=== PATIENT | female | born 1940 | race Caucasian/White ===

== ENCOUNTER 2016-08-10 14:46 | Inpatient (IN) | payer OTHER ==
--- NOTE | ~2016-08-10 | DS ---
Discharge Summary [place] [id number] [facility] [place]. [address] NAME: AMBER RENE : 42 STATUS : DIS IN PAT#: [id number] AGE: 76 ADM/REG DATE : 08/10/16 MR#: [id number] REPORT SERV DATE: 08/19/16 DICTATED BY: SIMON STAHL DATE: 08/18/16 REPORT STATUS : Draft TRANSCRIBED BY: DAVID DATE: 08/18/16 ADMISSION DATE: 08/10/2016 DISCHARGE DATE: 08/18/2016 PRINCIPAL DIAGNOSIS: Syncope in the setting of severe hyperglycemia. SECONDARY DIAGNOSES: 1. Type 2 diabetes, uncontrolled. 2. Dementia. 3. Generalized weakness. 4. Abdominal pain. 5. Hypokalemia. 6. Orthostasis. 7. Lung nodule. HISTORY OF PRESENT ILLNESS: Please Dr. Vogel's dictation on 08/10/2016. HOSPITAL COURSE: Please see Dr. Fermin's dictation on 08/17/2016. Subsequent hospital course, the patient had already been approved to rehabilitation center and paperwork was completed and she was released in stable condition. Arrangements were made with Dr. Leeanna Srivastava in followup as an outpatient for the lung nodule which was concerning, but for which she was a poor candidate for biopsy or treatment. She was sent over to [facility] in satisfactory condition. She is eating well. DNR status was affirmed. Physical therapy, occupational therapy per facility. She will continue lactulose 30 mL b.i.d., Levemir 45 units b.i.d., NovoLog 14 with meals, MiraLAX, Celexa, Actigall, Prilosec, Coumadin with biweekly PT, INRs. She will follow up Dr. Hernandez following [facility] release. Greater than 30 minutes were spent in care of this patient on discharge planning on discharge day. DICTATED BY: Marcell Gomez/DAVID Simon Stahl M.D. / [id number] CC: Simon Burke SamMarcell Kerr M.D. Pamela Sud, M.D. Discharge Summary [place] [address] [place] [address] NAME: AMBER RENE : 42 STATUS : DIS IN PAT#: [id number] AGE: 76 ADM/REG DATE : 08/10/16 MR#: [id number] REPORT SERV DATE: 08/19/16 DICTATED BY: SIMON STAHL DATE: 08/18/16 REPORT STATUS : Draft TRANSCRIBED BY: DAVID DATE: 08/18/16 [facility] [place]
--- NOTE | ~2016-08-10 | IDS ---
Interim Discharge Summary [facility] [address] [place]. [address] NAME: AMBER RENE : 42 STATUS : ADM IN [facility]#: [id number] AGE: 76 ADM/REG DATE : 08/10/16 MR#: [id number] REPORT SERV DATE: 08/17/16 DICTATED BY: AURELIA FERMIN DATE: 08/17/16 REPORT STATUS : Draft TRANSCRIBED BY: DAVID DATE: 08/17/16 ADMISSION DATE: 08/10/2016 DISCHARGE DATE: PROBLEM LIST: 1. Unresponsive spell. 2. Uncontrolled diabetes mellitus type 2 with A1c 12%. 3. Severe constipation. 4. Senile dementia. 5. History of lung cancer, 2005, now with a right lower lobe nodule that is worrisome. 6. History of previous PCI. 7. Report of pulmonary embolism in 2016 at [facility]. 8. Hypertension. 9. Chronic back pain. 10.Body mass index 34.3. HISTORY: This patient was brought to the emergency room. There was no family with her at the time when our admitting partner saw her. She complained of what is that she felt sick and that her sides were hot and pointing to the bilateral flanks. There was an indirect story that the paramedics were called because the patient either passed out or was unresponsive. Our admitting partner put the patient in the hospital. We have had difficulty contacting the family. I was able to reach a granddaughter, Faith, on 08/10/2016. She says that she was not at the house at that time, but that the patient reportedly was unconscious. She does not know any details about how long. She states that the patient's daughter Yoshi is there with her usually, and when she is not, there is a caregiver named Diandra. I was never able to reach this Diandra person who supposedly was there at that time the episode occurred. I did reach Yoshi on 08/12/2016. She states that her friend Diandra was with the patient when the patient became dazed and confused. Again, she could give very few details. I asked for Diandra's contact number. She gave me a phone number for Diandra, but I called it and all I got was a voice mail for someone named Sonya. Imaging included a chest x-ray, which was unremarkable. CT scan of the brain, which showed atrophy versus an unusual variant of hydrocephalus, known as extra-axial hydrocephalus, but the radiologist felt was probably not present. There was deep white matter changes consistent with old ischemic injury. CT scan of abdomen and pelvis because of her complaint of flank pain was ordered by me and done on 08/12/2016. It revealed pulmonary changes that could be either pulmonary vascular congestion or mild pulmonary fibrosis. There was an enlarging right lower lobe nodule, it was 1.4 x 1.4 cm, concerning for neoplasm, cardiomegaly with bilateral renal cyst and heavily calcified aorta. Echocardiogram, 08/12/2016, left ventricular ejection fraction 55%. Left atrium 4.3 cm. On physical exam, though the patient would complain of burning pain in her flanks one day, the next day, she will complain of pain and a completely different area of her abdomen and this pattern of change occurred frequently. On palpation, the patient never appeared to Interim Discharge Summary [address] [address] NAME: AMBER RENE : 42 STATUS : ADM IN PAT#: [id number] AGE: 76 ADM/REG DATE : 08/10/16 MR#: [id number] REPORT SERV DATE: 08/17/16 DICTATED BY: AURELIA FERMIN DATE: 08/17/16 REPORT STATUS : Draft TRANSCRIBED BY: DAVID DATE: 08/17/16 have any pain. She was eating very well, cleaning her plates up. She has had significant constipation. We have been working on that with MiraLAX, lactulose, milk of magnesia, Dulcolax, magnesium citrate, and now we are adding tap water enemas. The patient states that her bowels usually move on a daily basis. Diabetes mellitus is out of control. Her A1c was 12%. The patient's appetite is excellent. She asked me if she can have snacks like potato chips and barbecue, pork skins. I have talked with her about this and her diet. It is unclear how well her diet was being followed at home. We have adjusted her insulin upward. From talking to her daughter and her granddaughter, it sounds like the patient has dementia characteristics. Granddaughter stated that the patient talks out of her head ever since she had a stroke and she refers to an episode about seven months ago at another facility. The patient's daughter indicates that the patient can walk with a walker, but needs some assistance. Also needs help when she tries to shower. She can usually feed herself. She wears pull-ups because she has some incontinence, but she usually is able to tell them when she needs to go the bathroom. The daughter indicates that the patient has varying amounts of confusion, tends to repeat herself, talked about birds flying around the house when there was no evidence of that, at times she is slow mentally and very drowsy. She is on warfarin reportedly for a blood clot that she had in her lungs at [facility] in 01/2016. We have requested those records as well as records from her PCP. We have not received them yet. It is not clear why the patient would still be on it now other than possibly had not gotten in six months. They do not know of any prior blood clots. It is not clear also why she is on Actigall other than we have observed that her alkaline phosphatase levels are elevated currently around 117-118 and they have been elevated since 08/2013. Her total bilirubin levels have not been elevated and her ALT and AST levels are normal. Physical Therapy feels she needs inpatient rehab and then returning to home. The granddaughter and daughter told me that the patient was living with the daughter Yoshi that their landlord put him out on the street, it was unclear why, now they have another place to go live. I have tried to reach the daughter Yoshi multiple times, since one time I reached her on the phone on 08/12/2016. I have just repeatedly gotten her voice mail, most the time the voicemail is full. When it has not been full, I have left a message, but I have not been able to communicate with her because I wanted to make sure she knew about how her mom is doing and want to make sure she knew about that right lower lobe nodule, but I have not been able to get in touch with her. Case management has had similar challenges as well. RSG/MODL Interim Discharge Summary [place] [address] [place]. [address] NAME: AMBER RENE : 42 STATUS : ADM IN [facility]#: [id number] AGE: 76 ADM/REG DATE : 08/10/16 MR#: [id number] REPORT SERV DATE: 08/17/16 DICTATED BY: AURELIA FERMIN DATE: 08/17/16 REPORT STATUS : Draft TRANSCRIBED BY: DAVID DATE: 08/17/16 Aurelia Fermin M.D. / [id number] CC: Marcell Barrera M.D.
--- NOTE | ~2016-08-10 | HP ---
History And Physical [place] [id number] [facility] [place]. [address] NAME: AMBER RENE : 42 STATUS : ADM IN [facility]#: [id number] AGE: 76 ADM/REG DATE : 08/10/16 MR#: [id number] REPORT SERV DATE: 08/10/16 DICTATED BY: EVELIO LORD DATE: 08/10/16 REPORT STATUS : Draft TRANSCRIBED BY: MODSandra DATE: 08/10/16 DATE OF ADMISSION: 08/10/2016 CHIEF COMPLAINT: Passing out, possible syncope, and high blood sugars. HISTORY OF PRESENT ILLNESS: Obtained from the patient, who is a rather very poor historian and not lot of information available. The patient states only that she is sick and that "her sides are hot", pointing towards both flanks of the abdomen. The patient stated she had some loose stools, but no further information available such as any frequency or the quality of the stools. Presently, the patient actually is asking for some thing to eat as she has not been eating since last night. Denies any fever or chills. She stated that she had increased frequency and urgency, but no dysuria. No fever or chills reported. No coughing. No chest pain or palpitations. Apparently "almost passing out," investigation in the emergency room was showing orthostatic hypotension by increasing pulse and symptoms of "blacking out" as per patient and significantly uncontrolled blood sugars/hyperglycemia. Because of the above presentation and findings and because of the possible syncope episode at home, the patient apparently now is on warfarin. The patient was referred to the Hospitalist Service for further management and evaluation. Presently, the patient is comfortable in bed, asking for something to eat. She knows that she is in the hospital and she agreed to be admitted, but she cannot offer further information regarding her medical condition, medications, been following on her medical treatment. PAST MEDICAL HISTORY: Significant for prior COPD with a history of lung cancer, status post right lobectomy in the past, no longer smoking, on chronic home oxygen at home 2 L to 3 L of oxygen by nasal cannula, history of coronary artery disease with prior cardiac stenting, history of CHF with mild systolic dysfunction, last 2D echo in 08/2013 showed ejection fraction of 35%. The patient used to be seen in the past by Dr. John Garcia, Diagnostic Cardiology, uncertain if the patient has been followed with him since. History of hypertension, history of peripheral vascular disease, history of "fatty liver" and possible cirrhosis, history of hyperlipidemia, history of diabetes type 2, insulin dependent for many years; apparently poorly controlled, history of morbid obesity, history of osteoarthritis, osteoporosis, and degenerative disk disease with prior reported chronic lower back pain, history of GERD, history of depression and anxiety, history of cerebrovascular disease with prior CVA and TIAs, history of possible cognitive impairment, history of hearing loss on the right side. History of prior anemia, iron deficiency. PAST SURGICAL HISTORY: Significant for right lobectomy in 2004 for lung cancer, follow up with chemotherapy, history of cardiac stent placed in 2006, ear surgery in , partial hysterectomy in 1972, and cataract surgery, left and right, history of several EGDs and colonoscopies with history of a small bowel obstruction with lysis of adhesion as well as Meckel's diverticulum with laparoscopic mesh repair of an incisional hernia in 02/2013 at [facility], and history of . ALLERGIES: NO KNOWN DRUG ALLERGIES. FAMILY HISTORY: Significant for hypertension, diabetes, and coronary artery disease. History And Physical [address] [address] NAME: AMBER RENE : 42 STATUS : ADM IN [facility]#: [id number] AGE: 76 ADM/REG DATE : 08/10/16 MR#: [id number] REPORT SERV DATE: 08/10/16 DICTATED BY: EVELIO LORD DATE: 08/10/16 REPORT STATUS : Draft TRANSCRIBED BY: MODSandra DATE: 08/10/16 SOCIAL HISTORY: She is single. Lives with family. Retired. Quit smoking in 2004, no longer smoking. Denies alcohol abuse. Denies illicit recreational drug abuse. MEDICATIONS: Medications at home according to the list provided, the patient is supposed to take Celexa 20 mg p.o. daily, Plavix 75 mg p.o. daily, Lasix 20 mg p.o. q.a.m. and another 10 mg p.o. q. evening, Levemir 45 units subcutaneous daily and 35 units subcutaneous at bedtime, Combivent Respimat one inhalation q.i.d., losartan 25 mg p.o. daily, Prilosec 20 mg p.o. daily, potassium KCl 20 mEq p.o. b.i.d., Zocor 40 mg p.o. at bedtime, Actigall 300 mg p.o. b.i.d. with food, Coumadin one tablet p.o. daily, uncertain dose and scheduled, and uncertain if the patient has been taking all of the above medications as prescribed. REVIEW OF SYSTEMS: As per H and P, otherwise negative in all review of systems. Please note, the comprehensive review of system was obtained and pertinent positives were including in the H and P. Please note, the patient is a very poor historian and further information to be obtained and clarified with the patient's daughter seems to be the dinkey press operator at this moment. PHYSICAL EXAMINATION: GENERAL: Pleasant, in no particular distress at this moment. VITAL SIGNS: Upon arrival in the emergency room, blood pressure 119/56, pulse 72, respiratory rate 14, temperature 97, and oxygen saturation 98% on 3 L by nasal cannula, which is her baseline. Please note, the patient's orthostatic vital signs changes by increasing pulse and symptoms from 78 on laying flat to 99, heart rate attempts to stand becoming lightheaded as documented in the emergency room. HEENT: With bilateral cataracts. Extraocular movements intact. Throat, mild erythema. No exudate. Edentulous. No signs of tenderness. Atraumatic. NECK: Supple. No JVD. No bruits. No thyromegaly. No lymph nodes. LUNGS: Bilateral air entry with few bibasilar crackles. No wheezing. Good airway movement. HEART: Positive S1, S2. Regular rate and rhythm. Positive mitral regurgitation. Murmur at the apex. ABDOMEN: Positive bowel sounds. Soft and obese, with nonspecific left and right flank tenderness, but no masses. No localized tenderness. No CVA tenderness. No guarding. EXTREMITIES: With decreased range of motion and osteoarthritic changes. No clubbing, no cyanosis, +1 edema bilaterally up to mid calves, +1 pulses bilateral. No calf tenderness. NEUROLOGIC: Alert and oriented x2 to x3, easily reoriented with generalized weakness. Cranial nerves 2 though grossly intact. Motor strength 4-5/5, but symmetric bilateral. Deep tendon reflexes 2/2 symmetrical bilateral. BACK: With decreased range of motion. No focal localized tenderness. No CVA tenderness. SKIN: No bruises, no rashes, no lacerations. SIGNIFICANT LABORATORY DATA: Chest x-ray (personal reading) showed no acute infiltrate. EKG (personal reading) showed normal sinus rhythm, 67 beats per minute. No acute ST elevation. No old EKG available for comparison. Urinalysis was negative for signs of infection, glucose more than 500 and ketones 20. Sodium 137, potassium 3.6, chloride 99, bicarb 31, BUN 7, creatinine 0.81, glucose 391, calcium 9.4, and magnesium 1.7. Troponin I 0.04, which History And Physical [address] [address] NAME: AMBER RENE : 42 STATUS : ADM IN [facility]#: [id number] AGE: 76 ADM/REG DATE : 08/10/16 MR#: [id number] REPORT SERV DATE: 08/10/16 DICTATED BY: EVELIO LORD DATE: 08/10/16 REPORT STATUS : Draft TRANSCRIBED BY: DAVID DATE: 08/10/16 is negative. White cell count 4.7, hemoglobin 14.7, platelet count 216, and INR 1.1. ASSESSMENT AND PLAN AND PROBLEM LIST: The patient is a pleasant 76-year-old woman, admitted with likely syncope, falls, increasing confusion, significantly uncontrolled diabetes, and orthostatic hypotension. IMPRESSION: 1. Neurologic and psychiatric problem:. a. Syncope and falls. b. Confusion, question her baseline, possible altered mental status. c. Cerebrovascular disease, status post prior cerebrovascular accidents and transient ischemic attacks as previously documented. d. Depression and anxiety. For all the above, the patient has been admitted on the Hospitalist Service. We are going to continue with schedule neurologic checks. We are going to obtain a CT scan of the head/brain upon admission, as the patient supposedly is taking warfarin/blood thinner, and obviously cannot offer any significant reliable information. We are going to check a TSH, vitamin B12, and folate as correction would greatly improve her quality of life. Minimize sedation overall and continue to monitor clinically and provide supportive treatment. 1. Cardiovascular:. a. Orthostatic hypotension by elevated pulse. b. Coronary artery disease, status post prior cardiac stents. c. Congestive heart failure, 45%, in 08/2013. No more recent 2D echocardiogram available. d. Hypertension, uncontrolled; essential hypertension. e. Peripheral vascular disease by history. For all the above, we are going to continue the patient's Plavix. We are going to provide gentle IV hydration and continue orthostatic vital signs measurements and evaluation. Repeat CK and troponin I, and repeat 2D echocardiogram. Continue her ARB with Cozaar/losartan and use IV hydralazine p.r.n. for increased blood pressure. Consider Cardiology consultation. Continue her Lasix at this moment. 1. Endocrinologic problem:. a. Diabetes type 2, severely uncontrolled. Insulin-dependent with complications and with hyperglycemia. We are going to continue Levemir/long-acting insulin and continue sliding scale with NovoLog. Provide diabetic education. Check hemoglobin A1c. b. Hyperlipidemia, mixed type. Continue medications and check a lipid profile in the morning. Low cholesterol diet. c. Obesity with a body mass index more than 30. Encourage weight loss and moderate structured exercise. 2. Pulmonary:. a. Chronic obstructive pulmonary disease. b. Chronic home oxygen dependent, 2 L to 3 L of oxygen by nasal cannula. c. Status post right lobectomy for prior lung cancer with some degree of restrictive lung disease. History And Physical [address] [address] NAME: AMBER RENE : 42 STATUS : ADM IN [facility]#: [id number] AGE: 76 ADM/REG DATE : 08/10/16 MR#: [id number] REPORT SERV DATE: 08/10/16 DICTATED BY: EVELIO LORD DATE: 08/10/16 REPORT STATUS : Draft TRANSCRIBED BY: MODL DATE: 08/10/16 For all the above, we are going to continue the patient's home oxygen supplementation/chronic hypoxemic respiratory failure. We are going to continue bronchodilator therapy with DuoNebs. 1. Gastrointestinal problem. a. Gastroesophageal reflux disease without esophagitis. Continue PPI with Protonix 40 mg p.o. daily. b. History of fatty liver and cirrhosis. Check liver function profile at this moment. Continue to monitor clinically. c. Chronic anticoagulation, on Coumadin. Uncertain reason at this moment since the patient has not been taking it as recommended. We are going to try to obtain records from the patient's primary care provider. 2. Osteoarthritis, osteoporosis, deconditioning, and debilitation with a degenerative disk disease and chronic lower back pain. Provide adequate pain control. Encourage mobilization. Obtain physical therapy evaluation. 3. Do not resuscitation discussion. Confirmed with prior medical records, the patient was a do not resuscitate. We are going to reconfirm with the POLST form and confirm with the patient's family in the morning. 4. Prognosis: Moderately good for this admission rather poor in due to the patient's multiple medical problems and poor functional status and decline. RF/MODL Evelio Lord M.D. / [id number] CC: Marcell Dawson M.D.
--- NOTE | ~2016-08-10 | ECH ---
Echocardiogram [facility] [address] [place]. [address] NAME: AMBER RENE : 42 STATUS : ADM IN [facility]#: [id number] AGE: 76 ADM/REG DATE : 08/10/16 MR#: [id number] REPORT SERV DATE: 08/12/16 DICTATED BY: REYNA MCCARTHY JR. DATE: 08/12/16 REPORT STATUS : Draft TRANSCRIBED BY: DAVID DATE: 08/12/16 TECH: Serenity Rees is RDCS. ORDERING: Evelio Vogel M.D. INDICATIONS: Syncope, coronary artery disease. 2-D INTERPRETATION: M-mode and 2-dimensional echocardiography were performed. The left atrium was dilated at 4.3 cm compared to an aortic root diameter of 3.1 cm. The left ventricle is normal in size measuring 5 cm in end-diastole and 3.6 cm in end-systole. Overall, there appeared to be normal left ventricular systolic function without regional wall motion abnormalities with ejection fraction of 55%. The aortic valve was trileaflet. The mitral valve appeared to be mildly sclerotic with mild mitral annular calcification. The remaining cardiac valves appeared to be structurally normal. No obvious pericardial or pleural effusion could be seen. No intracardiac mass could be identified. DOPPLER/COLOR FLOW: Conventional and Doppler color flow imaging were performed. Mitral flow patterns were normal for patient's age. There was trace to mild mitral insufficiency. There was trace tricuspid insufficiency. Pulmonary hypertension was not noted. There was no aortic insufficiency. Nor aortic stenosis. CONCLUSION: NORMAL LEFT VENTRICULAR SYSTOLIC FUNCTION WITH DIASTOLIC FUNCTION APPROPRIATE FOR AGE. NO OBVIOUS EVIDENCE OF PULMONARY HYPERTENSION. DEFINITY CONTRAST IMAGING AGENT WAS UTILIZED TO ENHANCE ENDOCARDIAL BORDERS. /DAVID Reyna Mccarthy Jr., M.D. / [id number] CC: Benson Fermin M.D.
[2016-08-10 13:37] LABS: BASOPHILS 0.4 %; BASOPHILS ABSOLUTE 0.02 10/3/uL (0.0-0.16); EOSINOPHILS 1.3 %; EOSINOPHILS ABSOLUTE 0.06 10/3/uL (0.0-0.53); ER CBC TAT 0 Hrs 09 Mins; HEMATOCRIT 42.4 % (36.0-48.0); HEMOGLOBIN 14.7 g/dL (12.0-16.0); IMMATURE GRANULOCYTES 1.7 %; IMMATURE GRANULOCYTES ABSOLUTE 0.08 10/3/uL (0.0-0.11); LYMPHOCYTES 33.5 %; LYMPHOCYTES ABSOLUTE 1.57 10/3/uL (0.67-4.30); MANUAL DIFF NO %; MEAN CORPUS HGB CONC 34.7 g/dL (32.0-36.0); MEAN CORPUSCULAR VOLUME 89.5 fL (80-100); MEAN PLATELET VOLUME 9.6 fL (9.2-13.0); MONOCYTES 12.2 %; MONOCYTES ABSOLUTE 0.57 10/3/uL (0.21-1.20); NEUTROPHILS 50.9 %; NEUTROPHILS ABSOLUTE 2.38 10/3/uL (2.02-8.40); PLATELET COUNT 216 10/3/uL (150-400); RBC DISTRIBUTION WIDTH 13.8 % (12.0-16.0); RED CELL COUNT 4.74 10/6/uL (4.0-5.6); WHITE BLOOD CELLS 4.7 10/3/uL (4.5-10.5)
[2016-08-10 13:44] LABS: INTERNATIONAL NORMAL RATI 1.1 UNITS (-); PARTIAL THROMBO TIME 25.6 SEC (22.5-37.2); PROTIME (NOT ORD) 14.3 SEC (12.0-14.5)
[2016-08-10 13:47] LABS: BUN (BLOOD UREA NITROGEN) 7 MG/DL (6-23); CALCIUM, SERUM 9.4 MG/DL (8.5-10.4); CHEST PAIN PROFILE TAT 0 Hrs 20 Mins; CHLORIDE, SERUM 99 MMOL/L (96-112); CO2 (CARBON DIOXIDE) 31 MMOL/L (24-34); CREATININE 0.81 MG/DL (0.55-1.02); GFR AFRICAN AMERICAN 83 ML/MIN (>=60); GFR NON AFRICAN AMERICAN 72 ML/MIN (>=60); POTASSIUM, SERUM 3.6 MMOL/L (3.5-5.3); SODIUM, SERUM 137 MMOL/L (135-148); TROPONIN I 0.04 NG/ML (<0.05)
[2016-08-10 13:48] LABS: GLUCOSE, SERUM 391 MG/DL (60-99)
[2016-08-10 14:44] LABS: ASCORBIC ACID (UR NOT ORDER) NEG (NEG); BILIRUBIN, URINE NEGATIVE (NEG); ER URINALYSIS TAT 0 Hrs 09 Mins; KETONE, URINE 20 MG/DL (NEG); LEUKOCYTE ESTERASE(NOT OR NEG (NEG); NITRITE (URINE) NEG (NEG); WBC (NOT ORDERED) (RFLEX) < 1 (0-5)
[~2016-08-10 14:46] MED LIST: ACT300 PO; ALAVERT10 MG PO; ALBUTEROL NEBULIZER INH; ASA5GR PO; AVELOX400 PO; COMBIVENT RESPIM4 GM INH; COZ25 PO; CRESTOR10 PO; DOK100 MG PO; DSS PO; FLONASE NAS; FLOVENT110 INH; GLUCOPHAGE1000 MG PO; GLUCOPHXR PO; GLUCPH PO; HUMULIN R1 ML SC; IMDUR30 PO; INSNOV7030 SC; INSNOVR SC; KLOR-CON M1010 MEQ PO; KLOR-CON M2020 MEQ PO; KLOR-CON20 MEQ PO; L40 PO; LEVAQUIN750 MG PO; LORTAB 5 PO; METFORMIN HCL PO; METFORMIN PO; MIRALAXPKT PO; NOVOLOGMIX SC; P10 PO; PLAVIX PO; PRILO PO; PRILOSEC40 MG PO; PROVENTSOL INH; PULRESP.5 INH; RE DUALVI1 PO; SINGULAIR1 PO; SPIRIVA INH; SYMBICORT 160/41 INH INH; V2 PO; VITAMIN B-1500 MG PO; VITAMIN D400 UNI1 PO; ZOCOR20 PO
[2016-08-10] MEDS ORDERED: ACT300 PO (15:46)
[2016-08-10] MEDS ORDERED: KLOR-CON M2020 MEQ PO (15:46)
[2016-08-10] MEDS ORDERED: PRILO PO (15:46)
[2016-08-10] MEDS ORDERED: C5 PO (15:47)
[2016-08-10] MEDS ORDERED: L20 PO ×2 (15:47)
[2016-08-10] MEDS ORDERED: ZOCOR40 PO (15:47)
[2016-08-10] MEDS ORDERED: CELEXA20 PO (15:47)
[2016-08-10] MEDS ORDERED: COMBIVENT RESPIM4 GM INH (15:48)
[2016-08-10] MEDS ORDERED: COZ25 PO (15:48)
[2016-08-10] MEDS ORDERED: PLAVIX PO (15:48)
[2016-08-10] MEDS ORDERED: LEVEMIR SC (15:50)
[2016-08-10] MEDS ORDERED: HUMALOG SC (15:50)
[2016-08-10 19:54] LABS: ALBUMIN 3.7 G/DL (3.5-5.0); ALKALINE PHOSPHATASE 118 U/L (45-117); CK-MB 0.6 NG/ML; CPK 30 U/L (0-200); DIRECT BILIRUBIN 0.1 MG/DL (0.0-0.4); FREE T4 1.25 NG/DL (0.76-1.46); INDIRECT BILIRUBIN(NOT ORDER) 0.3 MG/DL (0.1-0.9); PHOSPHORUS, SERUM 3.2 MG/DL (2.5-4.5); SGOT(AST) 16 U/L (5-40); SGPT(ALT) 16 U/L (5-65); TOTAL BILIRUBIN 0.4 MG/DL (0-1.2); TOTAL PROTEIN 7.5 G/DL (6.0-8.5)
[2016-08-10 19:59] LABS: PROCALCITONIN <0.05 ng/mL (<0.5)
[2016-08-11 05:25] LABS: BASOPHILS 0.4 %; BASOPHILS ABSOLUTE 0.02 10/3/uL (0.0-0.16); EOSINOPHILS 1.4 %; EOSINOPHILS ABSOLUTE 0.07 10/3/uL (0.0-0.53); HEMATOCRIT 37.7 % (36.0-48.0); HEMOGLOBIN 12.9 g/dL (12.0-16.0); IMMATURE GRANULOCYTES 1.2 %; IMMATURE GRANULOCYTES ABSOLUTE 0.06 10/3/uL (0.0-0.11); LYMPHOCYTES 45.1 %; LYMPHOCYTES ABSOLUTE 2.27 10/3/uL (0.67-4.30); MANUAL DIFF NO %; MEAN CORPUS HGB CONC 34.2 g/dL (32.0-36.0); MEAN CORPUSCULAR HEMOGLOB 30.8 pg (26.0-34.0); MEAN PLATELET VOLUME 9.4 fL (9.2-13.0); MONOCYTES 12.5 %; MONOCYTES ABSOLUTE 0.63 10/3/uL (0.21-1.20); NEUTROPHILS 39.4 %; NEUTROPHILS ABSOLUTE 1.98 10/3/uL (2.02-8.40); PLATELET COUNT 200 10/3/uL (150-400); RBC DISTRIBUTION WIDTH 13.9 % (12.0-16.0); RED CELL COUNT 4.19 10/6/uL (4.0-5.6)
[2016-08-11 05:31] LABS: INTERNATIONAL NORMAL RATI 1.1 UNITS (-); PROTIME (NOT ORD) 14.5 SEC (12.0-14.5)
[2016-08-11 05:47] LABS: ALBUMIN 3.1 G/DL (3.5-5.0); BUN (BLOOD UREA NITROGEN) 6 MG/DL (6-23); CHLORIDE, SERUM 100 MMOL/L (96-112); CO2 (CARBON DIOXIDE) 27 MMOL/L (24-34); CPK 22 U/L (0-200); CREATININE 0.69 MG/DL (0.55-1.02); GFR AFRICAN AMERICAN 99 ML/MIN (>=60); GFR NON AFRICAN AMERICAN 86 ML/MIN (>=60); GLUCOSE, SERUM 320 MG/DL (60-99); PHOSPHORUS, SERUM 3.1 MG/DL (2.5-4.5); POTASSIUM, SERUM 3.4 MMOL/L (3.5-5.3); SODIUM, SERUM 138 MMOL/L (135-148); TROPONIN I 0.03 NG/ML (<0.05)
[2016-08-11 05:51] LABS: CK-MB 0.7 NG/ML
[2016-08-12 06:31] LABS: INTERNATIONAL NORMAL RATI 1.4 UNITS (-); PROTIME (NOT ORD) 17.3 SEC (12.0-14.5)
[2016-08-13 06:35] LABS: INTERNATIONAL NORMAL RATI 1.7 UNITS (-); PROTIME (NOT ORD) 19.7 SEC (12.0-14.5)
[2016-08-13 06:42] LABS: BUN (BLOOD UREA NITROGEN) 12 MG/DL (6-23); CALCIUM, SERUM 9.4 MG/DL (8.5-10.4); CHLORIDE, SERUM 103 MMOL/L (96-112); CO2 (CARBON DIOXIDE) 28 MMOL/L (24-34); GFR AFRICAN AMERICAN 99 ML/MIN (>=60); GFR NON AFRICAN AMERICAN 85 ML/MIN (>=60); GLUCOSE, SERUM 246 MG/DL (60-99); POTASSIUM, SERUM 4.3 MMOL/L (3.5-5.3); SODIUM, SERUM 138 MMOL/L (135-148)
[2016-08-14 05:06] LABS: INTERNATIONAL NORMAL RATI 1.9 UNITS (-)
[2016-08-14 11:49] LABS: BASOPHILS 0.4 %; BASOPHILS ABSOLUTE 0.03 10/3/uL (0.0-0.16); EOSINOPHILS 1.1 %; EOSINOPHILS ABSOLUTE 0.08 10/3/uL (0.0-0.53); HEMATOCRIT 39.9 % (36.0-48.0); HEMOGLOBIN 13.5 g/dL (12.0-16.0); IMMATURE GRANULOCYTES 0.7 %; IMMATURE GRANULOCYTES ABSOLUTE 0.05 10/3/uL (0.0-0.11); LYMPHOCYTES 25.6 %; LYMPHOCYTES ABSOLUTE 1.79 10/3/uL (0.67-4.30); MEAN CORPUS HGB CONC 33.8 g/dL (32.0-36.0); MEAN CORPUSCULAR HEMOGLOB 30.9 pg (26.0-34.0); MEAN CORPUSCULAR VOLUME 91.3 fL (80-100); MEAN PLATELET VOLUME 9.5 fL (9.2-13.0); MONOCYTES 10.2 %; MONOCYTES ABSOLUTE 0.71 10/3/uL (0.21-1.20); NEUTROPHILS ABSOLUTE 4.32 10/3/uL (2.02-8.40); PLATELET COUNT 177 10/3/uL (150-400); RBC DISTRIBUTION WIDTH 14.1 % (12.0-16.0); RED CELL COUNT 4.37 10/6/uL (4.0-5.6)
[2016-08-14 11:52] LABS: MANUAL DIFF NO %
[2016-08-14 12:01] LABS: CALCIUM, SERUM 9.2 MG/DL (8.5-10.4); CHLORIDE, SERUM 101 MMOL/L (96-112); CREATININE 0.74 MG/DL (0.55-1.02); GFR AFRICAN AMERICAN 92 ML/MIN (>=60); GFR NON AFRICAN AMERICAN 80 ML/MIN (>=60); POTASSIUM, SERUM 4.1 MMOL/L (3.5-5.3); SODIUM, SERUM 142 MMOL/L (135-148)
[2016-08-14 12:03] LABS: BUN (BLOOD UREA NITROGEN) 17 MG/DL (6-23); CO2 (CARBON DIOXIDE) 35 MMOL/L (24-34); GLUCOSE, SERUM 73 MG/DL (60-99)
[2016-08-15 05:13] LABS: PROTIME (NOT ORD) 22.3 SEC (12.0-14.5)
[2016-08-16 04:58] LABS: INTERNATIONAL NORMAL RATI 2.2 UNITS (-); PROTIME (NOT ORD) 24.1 SEC (12.0-14.5)
[2016-08-17 06:25] LABS: BASOPHILS 0.5 %; BASOPHILS ABSOLUTE 0.04 10/3/uL (0.0-0.16); EOSINOPHILS 1.3 %; HEMATOCRIT 38.4 % (36.0-48.0); HEMOGLOBIN 12.7 g/dL (12.0-16.0); IMMATURE GRANULOCYTES 0.8 %; IMMATURE GRANULOCYTES ABSOLUTE 0.06 10/3/uL (0.0-0.11); LYMPHOCYTES 28.2 %; LYMPHOCYTES ABSOLUTE 2.11 10/3/uL (0.67-4.30); MEAN CORPUS HGB CONC 33.1 g/dL (32.0-36.0); MEAN CORPUSCULAR HEMOGLOB 30.5 pg (26.0-34.0); MEAN CORPUSCULAR VOLUME 92.3 fL (80-100); MEAN PLATELET VOLUME 9.6 fL (9.2-13.0); MONOCYTES 8.7 %; MONOCYTES ABSOLUTE 0.65 10/3/uL (0.21-1.20); NEUTROPHILS 60.5 %; NEUTROPHILS ABSOLUTE 4.52 10/3/uL (2.02-8.40); PLATELET COUNT 196 10/3/uL (150-400); RBC DISTRIBUTION WIDTH 14.1 % (12.0-16.0); RED CELL COUNT 4.16 10/6/uL (4.0-5.6); WHITE BLOOD CELLS 7.5 10/3/uL (4.5-10.5)
[2016-08-17 06:29] LABS: MANUAL DIFF NO %
[2016-08-17 06:31] LABS: INTERNATIONAL NORMAL RATI 2.3 UNITS (-); PROTIME (NOT ORD) 25.1 SEC (12.0-14.5)
[2016-08-17 06:36] LABS: BUN (BLOOD UREA NITROGEN) 14 MG/DL (6-23); CHLORIDE, SERUM 101 MMOL/L (96-112); CREATININE 0.76 MG/DL (0.55-1.02); GFR AFRICAN AMERICAN 90 ML/MIN (>=60); GFR NON AFRICAN AMERICAN 77 ML/MIN (>=60); POTASSIUM, SERUM 4.2 MMOL/L (3.5-5.3); SODIUM, SERUM 136 MMOL/L (135-148)
[2016-08-17 06:37] LABS: CO2 (CARBON DIOXIDE) 29 MMOL/L (24-34); GLUCOSE, SERUM 201 MG/DL (60-99)
[2016-08-18 05:59] LABS: INTERNATIONAL NORMAL RATI 2.5 UNITS (-); PROTIME (NOT ORD) 26.9 SEC (12.0-14.5)
[2016-11-17] MEDS ORDERED: NORCO1 TA2 PO (22:15)
[2016-11-17] MEDS ORDERED: C25 PO (22:16)
[2016-11-20] MEDS ORDERED: LOVENOX1C SC (15:02)
== END 2016-08-18 15:48 | DRG 638 ==
LOC: ER 14:46 → 1SO 17:00
PROVIDERS: Emergency Medicine; Hospitalist; Internal Medicine
DX: E11.65 Type 2 diabetes mellitus with hyperglycemia (principal); I50.22 Chronic systolic (congestive) heart failure; J96.10 Chronic respiratory failure, unspecified whether with hypoxia or hypercapnia; I11.0 Hypertensive heart disease with heart failure; Z99.81 Dependence on supplemental oxygen; K76.0 Fatty (change of) liver, not elsewhere classified; I95.1 Orthostatic hypotension; J44.9 Chronic obstructive pulmonary disease, unspecified; I25.10 Atherosclerotic heart disease of native coronary artery without angina pectoris; I73.9 Peripheral vascular disease, unspecified; K21.9 Gastro-esophageal reflux disease without esophagitis; G89.29 Other chronic pain; E78.5 Hyperlipidemia, unspecified; F41.8 Other specified anxiety disorders; M54.5 Low back pain; M51.36 Other intervertebral disc degeneration, lumbar region; Z79.01 Long term (current) use of anticoagulants; Z79.02 Long term (current) use of antithrombotics/antiplatelets; Z79.4 Long term (current) use of insulin; Z91.19 Patient's noncompliance with other medical treatment and regimen; Z87.891 Personal history of nicotine dependence; Z85.118 Personal history of other malignant neoplasm of bronchus and lung; Z98.61 Coronary angioplasty status; Z86.73 Personal history of transient ischemic attack (TIA), and cerebral infarction without residual deficits; Z90.2 Acquired absence of lung [part of]; Z87.01 Personal history of pneumonia (recurrent)
CPT/HCPCS: 70450; 71010; 74000; 74176; 80048; 80069; 80076; 81001; 82550; 82553; 82962; 83036; 83735; 83880; 84100; 84132; 84145; 84439; 84443; 84484; 85025; 85610; 85730; 93005; 94640; 97110-GP; 97161-GP; 97530-GP; 99285; A9270-GY; C8929; Q9957

== ENCOUNTER 2016-11-26 15:40 | Emergency (ER) | payer OTHER ==
[~2016-11-26 15:40] MED LIST changes: +C25 PO; +C5 PO; +CELEXA20 PO; +HUMALOG SC; +L20 PO; +LEVEMIR SC; +LOVENOX1C SC; +NORCO1 TA2 PO; +ZOCOR40 PO
[2016-11-26 17:01] LABS: BASOPHILS 0.2 %; BASOPHILS ABSOLUTE 0.02 10/3/uL (0.0-0.16); EOSINOPHILS 0.4 %; EOSINOPHILS ABSOLUTE 0.03 10/3/uL (0.0-0.53); ER CBC TAT 0 Hrs 05 Mins; HEMATOCRIT 35.5 % (36.0-48.0); HEMOGLOBIN 11.6 g/dL (12.0-16.0); IMMATURE GRANULOCYTES 0.6 %; IMMATURE GRANULOCYTES ABSOLUTE 0.05 10/3/uL (0.0-0.11); LYMPHOCYTES 32.5 %; LYMPHOCYTES ABSOLUTE 2.65 10/3/uL (0.67-4.30); MANUAL DIFF NO %; MEAN CORPUS HGB CONC 32.7 g/dL (32.0-36.0); MEAN CORPUSCULAR HEMOGLOB 30.5 pg (26.0-34.0); MEAN CORPUSCULAR VOLUME 93.4 fL (80-100); MEAN PLATELET VOLUME 9.6 fL (9.2-13.0); MONOCYTES 10.4 %; MONOCYTES ABSOLUTE 0.85 10/3/uL (0.21-1.20); NEUTROPHILS 55.9 %; NEUTROPHILS ABSOLUTE 4.56 10/3/uL (2.02-8.40); PLATELET COUNT 249 10/3/uL (150-400); RBC DISTRIBUTION WIDTH 14.1 % (12.0-16.0); WHITE BLOOD CELLS 8.2 10/3/uL (4.5-10.5)
[2016-11-26 17:07] LABS: INTERNATIONAL NORMAL RATI 1.3 UNITS (-); PROTIME (NOT ORD) 15.8 SEC (12.0-14.5)
[2016-11-26 17:21] LABS: A/G RATIO 0.7 (0.7-1.9); ALBUMIN 3.1 G/DL (3.5-5.0); ALKALINE PHOSPHATASE 132 U/L (45-117); BUN (BLOOD UREA NITROGEN) 13 MG/DL (6-23); CHLORIDE, SERUM 101 MMOL/L (96-112); CO2 (CARBON DIOXIDE) 31 MMOL/L (24-34); CREATININE 0.86 MG/DL (0.55-1.02); GFR AFRICAN AMERICAN 77 ML/MIN (>=60); GFR NON AFRICAN AMERICAN 67 ML/MIN (>=60); GLOBULIN 4.2 G/DL (2.5-4.1); SGPT(ALT) 43 U/L (5-65); SODIUM, SERUM 137 MMOL/L (135-148); TOTAL PROTEIN 7.3 G/DL (6.0-8.5); TROPONIN I <0.02 NG/ML (<0.05)
[2016-11-26 17:23] LABS: GLUCOSE, SERUM 259 MG/DL (60-99); POTASSIUM, SERUM 4.2 MMOL/L (3.5-5.3); SGOT(AST) 38 U/L (5-40); TOTAL BILIRUBIN 0.8 MG/DL (0-1.2)
[2016-11-26 17:52] LABS: LACTATE 1.4 MMOL/L (0.3-2.4)
== END 2016-11-26 20:45 | disposition home or self-care (01) ==
LOC: ER 15:40
PROVIDERS: Nurse Practitioner Acute Care
DX: R09.89 Other specified symptoms and signs involving the circulatory and respiratory systems (principal); J44.9 Chronic obstructive pulmonary disease, unspecified; F03.90 Unspecified dementia, unspecified severity, without behavioral disturbance, psychotic disturbance, mood disturbance, and anxiety; E11.9 Type 2 diabetes mellitus without complications; Z79.01 Long term (current) use of anticoagulants; Z79.899 Other long term (current) drug therapy; Z79.4 Long term (current) use of insulin
CPT/HCPCS: 71010; 80053; 83605; 84484; 85025; 85610; 85730; 87040; 87070; 87205; 93005; 94640; 99284